=== PATIENT | female | born 1975 | race Caucasian/White ===

== ENCOUNTER 2016-09-01 09:55 | Emergency (ER) | payer BC ==
[~2016-09-01 09:55] MED LIST: CALCIUM 500 +1 EAC9; HYDROCORTISONE30 G2 APL; MOTRIN800 MG PO; NORCO 5/3251 TAB PO; PRENATAL TABLE1 EAC3; PRENATAL VITAMI1 TAB PO; SURFAK240 M1 PO; TYLENOL650 MG PO
[2016-09-01] MEDS ORDERED: PRENATAL-U CAPS1 CAP PO (10:10)
[2016-09-01 11:11] LABS: URINE BILIRUBIN NEGATIVE (NEG); URINE BLOOD NEGATIVE (NEG); URINE GLUCOSE (UA) NEGATIVE (NEG); URINE KETONE NEGATIVE (NEG); URINE LEUKOCYTE ESTERASE NEGATIVE (NEG); URINE NITRITE NEGATIVE (NEG); URINE PROTEIN NEGATIVE (NEG); URINE SPECIFIC GRAVITY 1.015 (1.003-1.030)
[2016-09-01 11:12] LABS: URINE APPEARANCE CLEAR; URINE COLOR PALE YELLOW
[2017-02-08] MEDS ORDERED: NO HOME MEDS (07:31)
== END 2016-09-01 12:07 ==
LOC: EDMED 09:55
PROVIDERS: Emergency Medicine
PROC: 4A0D7LZ Measurement of Urinary Volume, Via Natural or Artificial Opening (ICD-10-PCS; principal; 2016-09-01)
PROC: 0T9B70Z Drainage of Bladder with Drainage Device, Via Natural or Artificial Opening (ICD-10-PCS; 2016-09-01)
DX: O99.89 Other specified diseases and conditions complicating pregnancy, childbirth and the puerperium (principal); R33.9 Retention of urine, unspecified; Z3A.16 16 weeks gestation of pregnancy